=== PATIENT | female | born 2000 ===

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

== ENCOUNTER 2021-06-19 13:52 | Outpatient (CLI) | payer OTHER ==
[~2021-06-19 13:52] MED LIST: PRENATAL TABLE1 EAC1 PO
== END 2021-06-19 15:46 | disposition home or self-care (01) ==
LOC: PRENATAL 13:52
PROVIDERS: ATTEND Obstetrics & Gynecology Maternal & Fetal Medicine
DX: O36.8199 Decreased fetal movements, unspecified trimester, other fetus (principal); O35.0XX0 Maternal care for (suspected) central nervous system malformation in fetus, not applicable or unspecified; O36.5990 Maternal care for other known or suspected poor fetal growth, unspecified trimester, not applicable or unspecified; O35.3XX0 Maternal care for (suspected) damage to fetus from viral disease in mother, not applicable or unspecified

== ENCOUNTER 2021-07-10 01:16 | Inpatient (IN) | payer OTHER ==
[~2021-07-10] VITALS: Ht 157.5 cm; Wt 62.6 kg
== END 2021-07-12 12:32 | disposition home or self-care (01) | DRG 807 ==
LOC: OB/GYN 01:16 → LDR 01:16 → OB/GYN 16:36
PROVIDERS: ADMIT Obstetrics & Gynecology; ATTEND Obstetrics & Gynecology
PROC: 10E0XZZ Delivery of Products of Conception, External Approach (ICD-10-PCS; principal; 2021-07-10)
PROC: 4A1HXCZ Monitoring of Products of Conception, Cardiac Rate, External Approach (ICD-10-PCS; 2021-07-10)
DX: O80 Encounter for full-term uncomplicated delivery (principal); Z37.0 Single live birth; Z3A.37 37 weeks gestation of pregnancy; Z20.822 Contact with and (suspected) exposure to COVID-19